=== PATIENT | female | born 1950 | race Caucasian/White ===

== ENCOUNTER 2018-10-29 14:34 | Outpatient (REF) | payer MEDICARE ==
[~2018-10-29] VITALS: Ht 172.7 cm; Wt 83.9 kg
[2018-10-29] MEDS ORDERED: COUMADIN5 MG PO (14:57)
[2018-10-29] MEDS ORDERED: METFORMIN500 MG PO (14:57)
[2018-10-29] MEDS ORDERED: LIPITOR20 M1 PO (14:57)
== END 2018-10-29 15:04 | disposition home or self-care (01) ==
LOC: INF 14:34
PROVIDERS: ATTEND Internal Medicine Geriatric Medicine
PROC: 3C1ZX8Z Irrigation of Indwelling Device using Irrigating Substance, External Approach (ICD-10-PCS; principal; 2018-10-29)
DX: Z45.2 Encounter for adjustment and management of vascular access device (principal)